=== PATIENT | female | born 1985 | race Two or more races ===

== ENCOUNTER 2023-08-15 15:45 | Inpatient (IN) | payer MEDICAID ==
[~2023-08-15] VITALS: Ht 154.9 cm; Wt 70.5 kg
[2023-08-15] MEDS ORDERED: LORazepam 2 MG TABLET PO PRN (21:00)
[2023-08-15] MEDS ORDERED: HALOPERIDOL 5 MG TABLET PO PRN (21:00)
[2023-08-15] MEDS ORDERED: ZOLPIDEM TARTRATE 10 MG TABLET PO PRN (21:00)
[2023-08-16] MEDS ORDERED: INFLUENZA VIRUS VACCINE QVS 2023-24 (6MO+)/PF 60 MCG/0.5 ML SYRINGE IM. ONE (02:30)
[2023-08-16 08:20] VITALS: RESP 18
[2023-08-16] MEDS ORDERED: DOCUSATE SODIUM 100 MG CAPSULE PO PRN (16:45)
[2023-08-16] MEDS ORDERED: MAGNESIUM HYDROXIDE SUSPENSION 30 ML UDCUP PO PRN (16:45)
[2023-08-16] MEDS ORDERED: ALBUTEROL SULFATE HFA 90 MCG/PUFF 8 GM INHALER IH PRN (16:45)
[2023-08-16] MEDS ORDERED: ONDANSETRON HCL 4 MG TABLET PO PRN (16:45)
[2023-08-16] MEDS ORDERED: BACITRACIN 28 GM OINTMENT TP PRN (16:45)
[2023-08-16] MEDS ORDERED: OMEPRAZOLE 20 MG CAPSULE PO PRN (16:45)
[2023-08-16] MEDS ORDERED: BENZOCAINE/MENTHOL LOZENGE PO PRN (16:45)
[2023-08-16] MEDS ORDERED: CloNIDine HCL 0.1 MG TABLET PO PRN (16:45)
[2023-08-16] MEDS ORDERED: IBUPROFEN 600 MG TABLET PO PRN (16:45)
[2023-08-16] MEDS ORDERED: PETROLATUM,WHITE 28 GM JELLY TP PRN (16:45)
[2023-08-16] MEDS ORDERED: LOPERAMIDE HCL 2 MG CAPSULE PO PRN (16:45)
[2023-08-16] MEDS ORDERED: ACETAMINOPHEN 325 MG TABLET PO PRN (16:45)
[2023-08-16] MEDS ORDERED: MAG HYDROX/ALUMINUM HYD/SIMETH ES 30 ML SUSPENSION UDCUP PO PRN (16:45)
[2023-08-16] MEDS: RisperiDONE 1 MG TABLET PO SCH (17:30)
[2023-08-16 21:18] VITALS: BP 114/80; PULSE 91; RESP 18; TEMP 97.9; O2SAT 99
[2023-08-17] MEDS: RisperiDONE 1 MG TABLET PO SCH ×3 (08:20→16:18)
[2023-08-17 08:35] VITALS: RESP 16
[2023-08-17 23:58] VITALS: BP 127/88; PULSE 93; RESP 18; TEMP 96.1; O2SAT 99
[2023-08-18 08:07] VITALS: BP 134/92; PULSE 77; RESP 17; TEMP 98.2; O2SAT 96
[2023-08-18] MEDS: RisperiDONE 1 MG TABLET PO SCH ×2 (09:54→16:38)
[2023-08-18 20:56] VITALS: RESP 18; TEMP 98
[2023-08-19 08:28] VITALS: RESP 16
[2023-08-19] MEDS: RisperiDONE 1 MG TABLET PO SCH (09:00)
[2023-08-19] MEDS ORDERED: RISP1TAB98 PO (09:59)
== END 2023-08-19 15:36 | disposition home or self-care (01) | DRG 754 ==
LOC: B3A 23:00
PROVIDERS: ADMIT Psychiatry & Neurology Psychiatry; ATTEND Psychiatry & Neurology Psychiatry
DX: F32.9 Major depressive disorder, single episode, unspecified (principal); F29 Unspecified psychosis not due to a substance or known physiological condition; R45.851 Suicidal ideations; F41.9 Anxiety disorder, unspecified; G47.00 Insomnia, unspecified; K59.00 Constipation, unspecified; R51.9 Headache, unspecified
CPT/HCPCS: Z7610